=== PATIENT | male | born 1995 | race Caucasian/White ===

== ENCOUNTER 2016-09-29 00:50 | Emergency (ER) | payer OTHER ==
[~2016-09-29] VITALS: Ht 195.6 cm; Wt 112.1 kg
[2016-09-29 00:51] VITALS: BP 167/87
[2016-09-29] MEDS ORDERED: DIPH,PERTUSS(ACELL),TET VAC/PF 0.5 ML IM-VACC ONE ×2 (01:30→01:32)
[2016-09-29] MEDS ORDERED: BACITRACIN ZINC OINT 500U/GM, 0.9 GM ONE (01:51)
== END 2016-09-29 02:50 | disposition home or self-care (01) ==
LOC: ED 02:44
DX: S01.112A Laceration without foreign body of left eyelid and periocular area, initial encounter (principal); Z88.0 Allergy status to penicillin; W50.0XXA Accidental hit or strike by another person, initial encounter; Y93.89 Activity, other specified; Y99.8 Other external cause status; Y92.89 Other specified places as the place of occurrence of the external cause
CPT/HCPCS: 12011; 90471; 90715; 99283